=== PATIENT | male | born 2000 | race Caucasian/White ===

== ENCOUNTER 2022-08-04 12:23 | Emergency (ER) | payer OTHER, SELFPAY ==
[2022-08-04 12:31] VITALS: PULSE 126; O2SAT 99
[2022-08-04 12:33] VITALS: BP 168/95; PULSE 129; RESP 18; TEMP 37; O2SAT 99; BMI 23.1
[2022-08-04 12:37] VITALS: PULSE 120
--- NOTE | 2022-08-04 12:39 | DI.RAD.S_ITS ---
PROCEDURE: XR TOE RT MIN 2V INDICATIONS: sink fell on great toe TECHNIQUE: 3 views of the 1st toe(s) acquired. COMPARISON: None. FINDINGS: Bones: Small bony fragment adjacent to the distal tuft of the 1st digit. No suspicious bony lesions. Soft tissues: No suspicious soft tissue densities. IMPRESSION: Mildly displaced distal tuft fracture of the distal 1st digit. Dictated by: Kamari Adame M.D. on 08/04/2022 at 11:54 Approved by: Kamari Adame M.D. on 08/04/2022 at 11:55
--- NOTE | 2022-08-04 12:39 | ED.LOWEXIN ---
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 He states it bled a lot and he had this wrapped up and then came in for evaluation. He states that he is not up-to-date on tetanus but states that he does not want tetanus vaccination today. We discussed this at length that the risks and benefits, he is undecided at this time. 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 He states that he is able to toe, denies any numbness or tingling but states was bit had rapid up. Related Data Previous Rx's Medication Instructions Recorded cephalexin 500 mg capsule 500 mg PO TID 5 days #15 caps 08/04/22 hydrocodone 5 mg-acetaminophen 325 1 tab PO BID PRN pain #10 tabs 08/04/22 mg tablet mupirocin 2 % topical ointment 1 applic topical DAILY PRN toenail 08/04/22 #15 grams Allergies Allergy/AdvReac Type Severity Reaction Status Date / Time No Known Drug Allergies Allergy Verified 08/04/22 12:55 Review of Systems <AUSTIN Castillo - Last Filed: 08/04/22 14:47> Review of Systems ROS Unobtainable: All systems reviewed & are unremarkable except as noted in HPI and below Patient History <AUSTIN Castillo - Last Filed: 08/04/22 14:47> Social History Smoking Status: Current some day smoker Smoking Status: Current some day smoker tobacco type: cigarettes alcohol intake frequency: a few times a month Substance Use Type: does not use Exam <AUSTIN Castillo - Last Filed: 08/04/22 14:47> Narrative Exam Narrative: MSK: Patient's right great toe has a partial nail avulsion, laceration to the nail bed, mild oozing of blood, brisk cap refill, no tenderness to axial load, full range of motion of the joint without deficit, normal sensation without deficit, no plantar ecchymosis, toenail was removed after digital block completed with 1% lidocaine. Good result with anesthetic, patient was given ibuprofen for pain, salt anxious, hyperventilated, felt nauseated and near syncopal this did not have any syncopal event. He was given Zofran for this. He tolerated well after this and wound was thoroughly irrigated with normal saline, no foreign body, suture repair was completed with chromic gut to the nail bed and the laceration deep to the bed. Cuticle was stented with Xeroform to allow for nail growth and wound healing, wound was hemostatic by end of procedure, running suture was used with chromic gut and only 1 suture packet was used. Patient was fitted in orthopedic shoe afterwards, wound was dressed with bacitracin, Xeroform, a bulky gauze dressing and an orthopedic shoe. Initial Vital Signs Initial Vital Signs: Vital Signs Pulse Rate 126 H 08/04/22 12:31 Pulse Oximetry 99 08/04/22 12:31 <Mikel Carpenter DO - Last Filed: 08/05/22 07:57> Initial Vital Signs Initial Vital Signs: Vital Signs Pulse Rate 126 H 08/04/22 12:31 Pulse Oximetry 99 08/04/22 12:31 Procedures <AUSTIN Castillo - Last Filed: 08/04/22 14:47> Laceration Repair Laceration 1: Site: lower extremity Side (If applicable): right Size (cm): 2 Description: stellate and irregular Depth: simple, single layer and involves muscle layer Local Anesthetic: other anesthetic (Digital block with lidocaine 2%) Amount of anesthesia used (mL): 3 Pre-repair: wound explored, irrigated extensively, deep structures intact and wound margins revised Skin layer closed with: other (Left open, nail bed was sutured with chromic gut) Skin layer suture size: 5-0 Number of sutures: 3 Technique: running Subcutaneous layer closed with: chromic gut Subcutaneous layer suture size: 5-0 Number of sutures: 3 Technique: running Orthopedic Splinting/Casting Injury #1: Side: right Lower Extremity Injury Location: foot and toe Lower Extremity Immobilizer: post-op shoe Post splinting neuro exam: intact Post splinting vascular exam: intact Placed by: Nursing Course <YAN CastilloP - Last Filed: 08/04/22 14:47> Orders Ordered: Discontinued Medications Cephalexin HCl (Cephalexin 250 Mg Capsule) 500 mg PO NOW ONE Stop: 08/04/22 13:28 Last Admin: 08/04/22 13:33 Dose: 500 mg Documented By: RB Diphtheria/Tetanus/Acell Pertussis (Tet,Diph,Pertuss(Acell),Vac/Pf 0.5 Ml Syringe) 0.5 ml IM .ONCE ONE Stop: 08/04/22 12:34 Last Admin: 08/04/22 13:33 Dose: Not Given Documented By: RB Ibuprofen (Ibuprofen 400 Mg Tablet) 800 mg PO NOW ONE Stop: 08/04/22 12:34 Last Admin: 08/04/22 12:44 Dose: 800 mg Documented By: RB Lidocaine HCl (Lidocaine 2% Inj Sdv 5ml) 5 ml INJ INTRA-OP ONE Stop: 08/04/22 12:39 Last Admin: 08/04/22 12:43 Dose: 5 ml Documented By: RB Ondansetron HCl (Ondansetron 4 Mg Odt) 4 mg SL NOW ONE Stop: 08/04/22 12:56 Last Admin: 08/04/22 12:59 Dose: 4 mg Documented By: RB Vital Signs Vital signs: Vital Signs - 8 hr 08/04/22 12:33 08/04/22 12:37 08/04/22 12:31 Temperature 98.6 F Pulse Rate 129 H 126 H Pulse Rate [Right Dorsalis Pedis] 120 H Respiratory Rate 18 Blood Pressure 168/95 H Pulse Oximetry 99 99 Oxygen Delivery Method Nasal Cannula <Mikel Carpenter DO - Last Filed: 08/05/22 07:57> Orders Ordered: Discontinued Medications Cephalexin HCl (Cephalexin 250 Mg Capsule) 500 mg PO NOW ONE Stop: 08/04/22 13:28 Last Admin: 08/04/22 13:33 Dose: 500 mg Documented By: RB Diphtheria/Tetanus/Acell Pertussis (Tet,Diph,Pertuss(Acell),Vac/Pf 0.5 Ml Syringe) 0.5 ml IM .ONCE ONE Stop: 08/04/22 12:34 Last Admin: 08/04/22 13:33 Dose: Not Given Documented By: RB Ibuprofen (Ibuprofen 400 Mg Tablet) 800 mg PO NOW ONE Stop: 08/04/22 12:34 Last Admin: 08/04/22 12:44 Dose: 800 mg Documented By: RB Lidocaine HCl (Lidocaine 2% Inj Sdv 5ml) 5 ml INJ INTRA-OP ONE Stop: 08/04/22 12:39 Last Admin: 08/04/22 12:43 Dose: 5 ml Documented By: RB Ondansetron HCl (Ondansetron 4 Mg Odt) 4 mg SL NOW ONE Stop: 08/04/22 12:56 Last Admin: 08/04/22 12:59 Dose: 4 mg Documented By: RB Vital Signs Vital signs: Vital Signs - 8 hr 08/04/22 12:33 08/04/22 12:37 08/04/22 12:31 Temperature 98.6 F Pulse Rate 129 H 126 H Pulse Rate [Right Dorsalis Pedis] 120 H Respiratory Rate 18 Blood Pressure 168/95 H Pulse Oximetry 99 99 Oxygen Delivery Method Nasal Cannula [facility] - Extremity Injury (Lower) <AUSTIN Castillo - Last Filed: 08/04/22 14:47> Imaging Data Extremity x-ray #1: Radiologist's Impression: PROCEDURE:? XR TOE RT MIN 2V ? INDICATIONS:? sink fell on great toe ? TECHNIQUE:? 3 views of the 1st toe(s) acquired.? ? COMPARISON:? None. ? FINDINGS:? ? Bones:? Small bony fragment adjacent to the distal tuft of the 1st digit.? No suspicious bony lesions.? ? Soft tissues:? No suspicious soft tissue densities.? ? IMPRESSION:? Mildly displaced distal tuft fracture of the distal 1st digit.? ? ? Dictated by: Kamari Adame M.D. on 08/04/2022 at 11:54 ? ? Approved by: Kamari Adame M.D. on 08/04/2022 at 11:55 ? MDM Narrative Medical decision making narrative: Chief Complaint: Toe injury work Independent historian: Patient Multiple etiologies for patient's symptoms considered including, but not limited to: Tuft fracture, laceration, nail bed laceration, ligamental injury, vascular injury, open fracture, toenail avulsion I have independently reviewed the patient's vital signs and nursing notes as well as prior records if available. My interpretation of imaging: Foot x-ray shows a distal tuft fracture Consultations: Course of care: [id number] Suture repair was completed and wound was hemostatic, toenail was removed, nail bed laceration was repaired with chromic gut and stented cuticle open with Xeroform. Patient was given ibuprofen for pain, had an episode of anxiety and near-syncope but did not syncopized, he was given Zofran and felt much better afterwards. He tolerated the rest of the procedure well after the initial anxiety attack. He refused his tetanus vaccination due to fear of needles. Discussed risks and benefits and try to talk him into it but he refused again. He was treated with cephalexin for open tuft fracture. Encouraged take ibuprofen, was given pain pills to use as needed, mupirocin ointment to apply daily to prevent sticking, discussed wound care and to keep covered and follow-up with orthopedics to evaluate how the toenail is starting to grow. He was given contact information for [facility] for follow-up Social considerations that may affect disposition: none Questions are addressed and there is agreement with the plan and for follow-up. I consulted with the ED attending physician Dr. Carpenter as needed for higher level of care considerations and they were available for discussion and recommendations regarding plan of care and diagnostic testing. Patient is appropriate for outpatient management. Discharge Plan Departure Patient Disposition: Home Clinical Impression: Work related injury, Avulsion of nail bed Crush injury, toe Qualifiers: Encounter type: initial encounter Laterality: right Qualified Code(s): S97.101A - Crushing injury of unspecified right toe(s), initial encounter Nailbed laceration, toe Qualifiers: Encounter type: initial encounter Qualified Code(s): S91.219A - Laceration without foreign body of unspecified toe(s) with damage to nail, initial encounter Fracture of toe, open Qualifiers: Encounter type: initial encounter Toe: great toe Phalanx: distal Fracture alignment: displaced Laterality: right Qualified Code(s): S92.421B - Displaced fracture of distal phalanx of right great toe, initial encounter for open fracture Instructions: How to Care for a Laceration After Repair, DI for Toe Fracture, DI for Nail Avulsion Injury Activity Restrictions/Additional Instructions: *You have been diagnosed with a crush injury of your great toe with a nail bed laceration, tuft fracture of the distal part of your toe, toenail avulsion and laceration to the deep toe. This should heal but will feel better if you elevated, ice it, take ibuprofen pain pills as needed, where the orthopedic shoe and follow-up with orthopedic group in 1-2 weeks for a recheck to see how the toenail is starting to grow, use a topical antibiotic ointment, cover with gauze and breathable socks. I used dissolvable sutures only, and I left the cuticle separate and wedged with Xeroform to allow cuticle to heal while the nail starts to grow. Come back in his redness or streaking up your foot, develop fever chills, or have pus coming out of your toenail. It is okay to shower like usual. *What to do: *Please continue to take your regular medications as directed. [x ] New medication prescriptions sent to your pharmacy: [ [facility] [place]] [ ] New medication written as a paper prescription [ ] No new medications given *Please call and schedule follow up with your primary care provider in 2-3 days, at least for an update. Let them know you were seen in the Emergency Department for the above problem. We will electronically transmit a record of today's note if your PCP or specialist is in our system. *If you do not have a primary care provider please contact [phone] to establish care with one of the [facility] primary care providers. *Return to the Emergency Department for worsening symptoms, inability to keep liquids down, fever greater than 101F, chills, or other concerning symptom. Prescriptions: New cephalexin 500 mg capsule 500 mg PO TID 5 Days Qty: 15 0RF mupirocin 2 % ointment 1 applic topical DAILY PRN (Reason: toenail) Qty: 15 0RF hydrocodone-acetaminophen 5-325 mg tablet 1 tab PO BID PRN (Reason: pain) Qty: 10 0RF Referrals: [facility] [Provider Group] - 5-7 days Stand Alone Forms: Patient Portal/API <Mikel Carpenter DO - Last Filed: 08/05/22 07:57> Cosign ED Attending Johnnyature Attestation: I was immediately available in the department for consultation. Documentation has been reviewed. I agree with assessment and plan.
[2022-08-04] MEDS: LIDOCAINE 2% INJ SDV 5ML 5 ML INJ (12:43)
[2022-08-04] MEDS: IBUPROFEN 400 MG TABLET 800 MG PO (12:44)
[2022-08-04] MEDS: ONDANSETRON 4 MG ODT SL (12:59)
[2022-08-04] MEDS: cephALEXin 250 MG CAPSULE 500 MG PO (13:33)
== END 2022-08-04 14:15 | disposition home or self-care (01) ==
PROVIDERS: Emergency Provider Nurse Practitioner Critical Care Medicine
DX: S91.211A Laceration without foreign body of right great toe with damage to nail, initial encounter (principal); S92.421B Displaced fracture of distal phalanx of right great toe, initial encounter for open fracture; S97.101A Crushing injury of unspecified right toe(s), initial encounter; Y99.0 Civilian activity done for income or pay
CPT/HCPCS: 12001; 73660; 99283; 99284